=== PATIENT | male | born 1980 | race Caucasian/White ===

== ENCOUNTER 2025-08-01 17:47 | Emergency (ER) | payer OTHER ==
[~2025-08-01] VITALS: Ht 185.4 cm; Wt 117.9 kg
[2025-08-01] MEDS ORDERED: Motrin,Rufen800 MG PO (19:22)
== END 2025-08-01 19:38 | disposition home or self-care (01) ==
LOC: ED 17:47
DX: S86.912A Strain of unspecified muscle(s) and tendon(s) at lower leg level, left leg, initial encounter (principal); X50.1XXA Overexertion from prolonged static or awkward postures, initial encounter; Y93.89 Activity, other specified; Y92.89 Other specified places as the place of occurrence of the external cause; Y99.8 Other external cause status